=== PATIENT | female | born 1965 | race Caucasian/White ===

== ENCOUNTER 2017-11-20 23:23 | Emergency (ER) | payer OTHER ==
[~2017-11-20] VITALS: Ht 165.1 cm; Wt 62.6 kg
== END 2017-11-21 01:49 | disposition home or self-care (01) ==
LOC: ER 23:23
DX: S60.222A Contusion of left hand, initial encounter (principal); W18.39XA Other fall on same level, initial encounter; Y93.89 Activity, other specified; Y92.098 Other place in other non-institutional residence as the place of occurrence of the external cause; Y99.8 Other external cause status

== ENCOUNTER 2018-07-15 12:29 | Outpatient (CLI) | payer OTHER ==
[~2018-07-15 12:29] MED LIST: MEDROL8 MG PO; PLAVIX75 MG
== END 2018-07-15 12:37 | disposition home or self-care (01) ==
LOC: MAMO-SONO 12:29
DX: I10 Essential (primary) hypertension (principal); Z12.31 Encounter for screening mammogram for malignant neoplasm of breast; N63.10 Unspecified lump in the right breast, unspecified quadrant; N63.20 Unspecified lump in the left breast, unspecified quadrant

== ENCOUNTER 2019-09-29 10:26 | Outpatient (CLI) | payer OTHER | END 2019-09-29 10:38 | disposition home or self-care (01) | LOC: MAMO-SONO 10:26 | DX: Z12.31 Encounter for screening mammogram for malignant neoplasm of breast (principal); N64.59 Other signs and symptoms in breast; N63.10 Unspecified lump in the right breast, unspecified quadrant; N63.20 Unspecified lump in the left breast, unspecified quadrant ==

== ENCOUNTER 2020-06-01 14:18 | Outpatient (CLI) | payer OTHER | END 2020-06-01 14:25 | disposition home or self-care (01) | LOC: MRI 14:18 | DX: M25.512 Pain in left shoulder (principal) | CPT/HCPCS: 73221 ==